=== PATIENT | female | born 1960 | race Caucasian/White ===

== ENCOUNTER 2018-03-31 18:53 | Emergency (ER) | payer BC ==
[~2018-03-31] VITALS: Ht 175.3 cm; Wt 64.4 kg
[~2018-03-31 18:53] MED LIST: AZIT500 PO; CHOL10002 PO; CYAN100; Flomax0.4 MG PO; KETO10 PO; Multiple Vitam1 EAC1 PO; Percocet 5-3251 EACH PO; Zofran Odt4 MG SL
[2018-03-31] MEDS ORDERED: PROG100 PO (19:08)
[2018-03-31 19:45] LABS: BASOPHILS ABSOLUTE AUTO 0.03 K/mm3 (0.00-0.23); BASOPHILS PERCENT AUTO 0 % (0-2); EOSINOPHILS ABSOLUTE AUTO 0.03 K/mm3 (0.00-0.68); EOSINOPHILS PERCENT AUTO 0 % (0-6); Hematocrit 44.7 % (33.0-51.0); Hemoglobin 14.5 g/dL (11.5-16.0); IMMATURE GRAN ABSOLUTE AUTO 0.02 K/mm3 (0.00-0.10); IMMATURE GRAN PERCENT AUTO 0 % (0-1); LYMPHOCYTES ABSOLUTE AUTO 1.05 K/mm3 (0.84-5.20); LYMPHOCYTES PERCENT AUTO 14 % (21-46); MONOCYTES ABSOLUTE AUTO 0.35 K/mm3 (0.16-1.47); MONOCYTES PERCENT AUTO 5 % (4-13); Mean Corpuscular HGB 31.6 pg (26.0-34.0); Mean Corpuscular HGB Conc 32.4 g/dL (31.5-36.5); Mean Corpuscular Volume 97 fL (80-100); Mean Platelet Volume 10.3 fL (9.1-12.4); NEUTROPHILS ABSOLUTE AUTO 6.25 K/mm3 (1.96-9.15); NEUTROPHILS PERCENT AUTO 81 % (41-73); Platelet Count 268 K/mm3 (150-400); RDW Coefficient Variation 12.6 % (11.7-14.2); RDW Standard Deviation 45.2 fL (35.1-46.3); Red Blood Cell Count 4.59 M/mm3 (3.80-5.20); White Blood Cell Count 7.73 K/mm3 (4.00-11.30)
[2018-03-31 20:03] LABS: Alanine Aminotransfer (ALT/SGP 37 U/L (12-78); Albumin, Blood 3.8 g/dL (3.4-5.0); Albumin/Globulin Ratio 1.1 (0.8-1.8); Alk Phos 70 U/L (50-136); Anion Gap 5 mmol/L (6-16); Aspartate Aminotrans (AST/SGOT 26 U/L (12-37); Bilirubin, Total 0.7 mg/dL (0.1-1.0); Blood Urea Nitrogen 10 mg/dL (8-24); Bun/Creatinine Ratio 13.6 (12.0-20.0); CO2, Blood 28 mmol/L (21-32); Calcium, Blood 8.4 mg/dL (8.5-10.1); Chloride, Blood 105 mmol/L (98-108); Creatinine, Blood 0.74 mg/dL (0.40-1.00); Globulin, Blood 3.6 g/dL (2.2-4.0); Glomerular Filtration Rate >60 (60-); Glucose, Blood 107 mg/dL (70-99); Potassium, Blood 3.8 mmol/L (3.5-5.5); Sodium, Blood 138 mmol/L (136-145); Total Protein, Blood 7.4 g/dL (6.4-8.2)
[2018-03-31] MEDS ORDERED: Prednisone20 MG PO (21:33)
== END 2018-03-31 21:58 | disposition home or self-care (01) ==
LOC: ER 18:53
PROVIDERS: Physician Assistant
DX: R51 Headache (principal); H53.8 Other visual disturbances; Z88.1 Allergy status to other antibiotic agents; Z88.2 Allergy status to sulfonamides; Z79.899 Other long term (current) drug therapy
CPT/HCPCS: 36415; 70450; 80053; 85025; 85651; 93005; 93010; 99284-25

== ENCOUNTER 2018-09-24 07:52 | Day surgery (SDC) | payer BC ==
[~2018-09-24] VITALS: Ht 175.3 cm; Wt 67.8 kg
[~2018-09-24 07:52] MED LIST changes: +BIOGEST PO; +MULTI VITAMIN1 EACH PO; +PROG100 PO; +Prednisone20 MG PO; +VITAMIN B122500 MCG; +[UNRECOGNIZED DRUG - CODE] PO
== END 2018-09-24 10:04 | disposition home or self-care (01) ==
LOC: ORSCSDS 07:52
PROVIDERS: Student in an Organized Health Care Education/Training Program
PROC: 0DBL8ZX Excision of Transverse Colon, Via Natural or Artificial Opening Endoscopic, Diagnostic (ICD-10-PCS; principal; 2018-09-24 09:00)
DX: Z12.11 Encounter for screening for malignant neoplasm of colon (principal); D12.3 Benign neoplasm of transverse colon; K64.8 Other hemorrhoids; J45.909 Unspecified asthma, uncomplicated; K62.89 Other specified diseases of anus and rectum; Z79.899 Other long term (current) drug therapy
CPT/HCPCS: 88305; J2704; J7120

== ENCOUNTER → 2018-12-17 | Outpatient (CLI) | payer BC | END | disposition home or self-care (01) | LOC: PLD 14:15 → LAB SHORT 14:15 | DX: L98.9 Disorder of the skin and subcutaneous tissue, unspecified (principal) | CPT/HCPCS: 88304 ==

== ENCOUNTER 2020-01-15 19:34 | Emergency (ER) | payer BC ==
[~2020-01-15] VITALS: Ht 175.3 cm; Wt 71.7 kg
[2020-01-15 20:11] LABS: BASOPHILS ABSOLUTE AUTO 0.03 K/mm3 (0.00-0.23); BASOPHILS PERCENT AUTO 1 % (0-2); EOSINOPHILS ABSOLUTE AUTO 0.06 K/mm3 (0.00-0.68); EOSINOPHILS PERCENT AUTO 1 % (0-6); Hematocrit 41.2 % (33.0-51.0); Hemoglobin 13.3 g/dL (11.5-16.0); IMMATURE GRAN ABSOLUTE AUTO 0.01 K/mm3 (0.00-0.10); IMMATURE GRAN PERCENT AUTO 0 % (0-1); LYMPHOCYTES ABSOLUTE AUTO 1.83 K/mm3 (0.84-5.20); LYMPHOCYTES PERCENT AUTO 29 % (21-46); MONOCYTES ABSOLUTE AUTO 0.38 K/mm3 (0.16-1.47); MONOCYTES PERCENT AUTO 6 % (4-13); Mean Corpuscular HGB 31.3 pg (26.0-34.0); Mean Corpuscular HGB Conc 32.3 g/dL (31.5-36.5); Mean Corpuscular Volume 97 fL (80-100); Mean Platelet Volume 10.6 fL (9.1-12.4); NEUTROPHILS ABSOLUTE AUTO 4.09 K/mm3 (1.96-9.15); NEUTROPHILS PERCENT AUTO 64 % (41-73); Platelet Count 268 K/mm3 (150-400); RDW Coefficient Variation 12.4 % (11.7-14.2); RDW Standard Deviation 44.4 fL (35.1-46.3); Red Blood Cell Count 4.25 M/mm3 (3.80-5.20)
[2020-01-15 20:35] LABS: Alanine Aminotransfer (ALT/SGP 48 U/L (12-78); Albumin, Blood 3.9 g/dL (3.4-5.0); Albumin/Globulin Ratio 1.1 (0.8-1.8); Alk Phos 66 U/L (50-136); Anion Gap 4 mmol/L (6-16); Aspartate Aminotrans (AST/SGOT 27 U/L (12-37); Bilirubin, Total 0.2 mg/dL (0.1-1.0); Blood Urea Nitrogen 12 mg/dL (8-24); Bun/Creatinine Ratio 13.6 (12.0-20.0); CO2, Blood 32 mmol/L (21-32); Calcium, Blood 8.9 mg/dL (8.5-10.1); Chloride, Blood 104 mmol/L (98-108); Creatinine, Blood 0.88 mg/dL (0.40-1.00); Globulin, Blood 3.4 g/dL (2.2-4.0); Glomerular Filtration Rate >60 (60-); Glucose, Blood 120 mg/dL (70-99); Potassium, Blood 3.7 mmol/L (3.5-5.5); Sodium, Blood 140 mmol/L (136-145); Total Protein, Blood 7.3 g/dL (6.4-8.2); Troponin I <0.015 ng/mL (0.000-0.040)
[2020-01-15] MEDS ORDERED: Vistaril25 MG PO (22:30)
== END 2020-01-15 22:41 | disposition home or self-care (01) ==
LOC: ER 19:34
PROVIDERS: Emergency Medicine
DX: F41.1 Generalized anxiety disorder (principal); F43.0 Acute stress reaction; Z88.1 Allergy status to other antibiotic agents; Z88.2 Allergy status to sulfonamides; Z87.891 Personal history of nicotine dependence
CPT/HCPCS: 70450; 71046; 80053; 84484; 85025; 93005; 93010; 99285-25

== ENCOUNTER → 2024-08-05 | Outpatient (CLI) | payer BC ==
[~2024-08-05] MED LIST changes: +ESCI10 PO; +Vistaril25 MG PO
[2024-08-05 12:50] LABS: Appearance, Urine Clear (Clear); Bilirubin, Urine Neg (Neg); Blood, Urine 5+ (Neg); Color, Urine Yellow (P-Yellow); Glucose Qualitative, Urine Neg (Neg); Ketones, Urine Neg (Neg); Leukocyte Esterase, Urine 3+ (Neg); Nitrite, Urine Neg (Neg); Protein, Urine 2+ (Neg); Urobilinogen, Urine NORM (Normal)
[2024-08-05 13:13] LABS: Bacteria Mod /hpf; Squamous Epithelial Cells Not Seen /hpf (Few); White Blood Cells, Urine 50-100 /hpf (0-5)
== END ==
LOC: LAB SHORT 12:35 → LAB 12:35
PROVIDERS: Surgery
DX: C21.1 Malignant neoplasm of anal canal (principal); R30.0 Dysuria; Z51.0 Encounter for antineoplastic radiation therapy
CPT/HCPCS: 81001; 87086